=== PATIENT | female | born 1980 | race African-American/Black ===

== ENCOUNTER 2018-07-03 08:37 | Emergency (ER) | payer MEDICAID, OTHER ==
[~2018-07-03] VITALS: Ht 182.9 cm; Wt 87.0 kg
[2018-07-03] MEDS ORDERED: SODIUM CHLORIDE 0.9% 1,000 ML IV ONE (09:35)
[2018-07-03] MEDS ORDERED: ONDANSETRON HCL 4MG/2ML INJ IV STA (09:35)
[2018-07-03] MEDS ORDERED: KETOROLAC 30MG/ML VIAL IV STA (10:38)
[2018-07-03 11:24] LABS: HEMATOCRIT. 35.8 % (36.0-48.0); HEMOGLOBIN. 12.4 g/dL (12.0-16.0); MEAN CORPUSCULAR HEMOGLOBIN 32.7 pg (28.0-32.0); MEAN CORPUSCULAR VOLUME 94.4 fL (81.0-99.0); MEAN PLATELET VOLUME 7.9 fl (7.4-10.4); PLATELET 291 x1000/uL (130-400); RED CELL DISTRIBUTION WIDTH 13.9 % (11.6-14.6)
[2018-07-03] MEDS ORDERED: PROCHLORPERAZINE MALEATE 10MG TABLET PO ONE (11:30)
[2018-07-03] MEDS ORDERED: MORPHINE SULFATE 2 MG/ML CPJ (NOT FOR IM USE) IV ONE (11:30)
[2018-07-03 11:33] LABS: CHLORIDE 98 mEq/L (98-107)
[2018-07-03 11:34] LABS: HCG SCREEN NEGATIVE
[2018-07-03 12:07] LABS: PLATELET ESTIMATE NORMAL
[2018-07-03] MEDS ORDERED: METOCLOPRAMIDE HCL 10MG/2ML VIAL IV ONE (12:15)
[2018-07-03 12:50] LABS: CLARITY URINE CLEAR (CLEAR); COLOR URINE YELLOW (YELLOW); KETONES URINE 4+ (NEGATIVE); LEUKOCYTE ESTERASE URINE NEGATIVE (NEGATIVE); NITRITE URINE NEGATIVE (NEGATIVE); OCCULT BLOOD URINE NEGATIVE (NEGATIVE); PH URINE 8.5 (4.5-8.0); PROTEIN URINE 1+ (NEGATIVE); SPECIFIC GRAVITY URINE 1.024 (1.005-1.030)
[2018-07-03] MEDS ORDERED: MORPHINE SULFATE 4 MG/ML CPJ (NOT FOR IM USE) IV ONE (13:00)
[2018-07-03 13:22] LABS: METHADONE URINE SCREEN NEGATIVE (NEGATIVE); OPIATES URINE SCREEN NEGATIVE (NEGATIVE)
[2018-07-03 13:23] LABS: *AMPHETAMINES SCREEN URINE NEGATIVE (NEGATIVE); *BARBITURATES SCREEN URINE NEGATIVE (NEGATIVE); *BENZODIAZEPINES SCREEN URINE NEGATIVE (NEGATIVE); *COCAINE SCREEN URINE NEGATIVE (NEGATIVE); CANNABINOID URINE SCREEN NEGATIVE (NEGATIVE); PHENCYCLIDINE URINE SCREEN NEGATIVE (NEGATIVE)
[2018-07-03 14:32] VITALS: BP 176/111
== END 2018-07-03 14:34 | disposition home or self-care (01) ==
LOC: ER 09:05
DX: K29.70 Gastritis, unspecified, without bleeding (principal); K76.0 Fatty (change of) liver, not elsewhere classified; E11.9 Type 2 diabetes mellitus without complications; R03.0 Elevated blood-pressure reading, without diagnosis of hypertension
CPT/HCPCS: 36415; 76700; 80053; 80305; 81003; 81025; 83690; 84703; 85025; 96361; 96374; 96375; 96376; 99285; J1885; J2270; J2405; J2765; J7030; Q0164; A4315

== ENCOUNTER 2019-02-27 08:37 | Emergency (ER) | payer MEDICAID, OTHER ==
[~2019-02-27] VITALS: Ht 185.4 cm; Wt 82.0 kg
[2019-02-27] MEDS ORDERED: ONDANSETRON HCL 4MG/2ML INJ IV STA (08:50)
[2019-02-27] MEDS ORDERED: SODIUM CHLORIDE 0.9% 1,000 ML IV ONE (08:50)
[2019-02-27] MEDS ORDERED: MORPHINE SULFATE 4 MG/ML CPJ (NOT FOR IM USE) IV STA (08:50)
[2019-02-27] MEDS ORDERED: FAMOTIDINE 20MG/2ML VIAL IV STA (08:50)
[2019-02-27 09:45] LABS: HEMATOCRIT. 36.3 % (36.0-48.0); HEMOGLOBIN. 12.3 g/dL (12.0-16.0); MEAN CORPUSCULAR HEMOGLOBIN 31.5 pg (28.0-32.0); MEAN CORPUSCULAR VOLUME 93.2 fL (81.0-99.0); MEAN PLATELET VOLUME 7.8 fl (7.4-10.4); PLATELET 301 x1000/uL (130-400); RED CELL DISTRIBUTION WIDTH 14.2 % (11.6-14.6)
[2019-02-27 09:50] LABS: CHLORIDE 98 mEq/L (98-107)
[2019-02-27 09:52] LABS: PROTHROMBIN TIME 10.1 sec (9.6-11.0)
[2019-02-27 09:55] LABS: ETHANOL BLOOD < 10 mg/dL
[2019-02-27 09:57] LABS: HCG SCREEN NEGATIVE
[2019-02-27 10:04] LABS: CLARITY URINE CLOUDY (CLEAR); COLOR URINE YELLOW (YELLOW); KETONES URINE 4+ (NEGATIVE); LEUKOCYTE ESTERASE URINE NEGATIVE (NEGATIVE); NITRITE URINE NEGATIVE (NEGATIVE); OCCULT BLOOD URINE NEGATIVE (NEGATIVE); PROTEIN URINE 1+ (NEGATIVE); SPECIFIC GRAVITY URINE 1.039 (1.005-1.030)
[2019-02-27 10:08] LABS: PLATELET ESTIMATE NORMAL
[2019-02-27 10:26] LABS: *AMPHETAMINES SCREEN URINE NEGATIVE (NEGATIVE); *BARBITURATES SCREEN URINE NEGATIVE (NEGATIVE); *BENZODIAZEPINES SCREEN URINE NEGATIVE (NEGATIVE); *COCAINE SCREEN URINE NEGATIVE (NEGATIVE); CANNABINOID URINE SCREEN NEGATIVE (NEGATIVE); METHADONE URINE SCREEN NEGATIVE (NEGATIVE); OPIATES URINE SCREEN NEGATIVE (NEGATIVE); PHENCYCLIDINE URINE SCREEN NEGATIVE (NEGATIVE)
[2019-02-27 11:44] VITALS: BP 111/74
== END 2019-02-27 11:47 | disposition home or self-care (01) ==
LOC: ER 08:37
DX: E11.65 Type 2 diabetes mellitus with hyperglycemia (principal); B37.49 Other urogenital candidiasis; E11.43 Type 2 diabetes mellitus with diabetic autonomic (poly)neuropathy; K31.84 Gastroparesis; I10 Essential (primary) hypertension; Z98.890 Other specified postprocedural states; Z87.19 Personal history of other diseases of the digestive system
CPT/HCPCS: 36415; 71045; 80053; 80305; 80320; 81003; 81025; 83690; 84484; 84703; 85025; 85610; 93005; 96361; 96374; 96375; 99284; J2270; J2405; J3490; J7030; G0480

== ENCOUNTER 2019-02-28 08:06 | Inpatient (IN) | payer MEDICAID ==
[~2019-02-28] VITALS: Ht 182.9 cm; Wt 81.6 kg
[2019-02-28] MEDS ORDERED: ONDANSETRON HCL 4MG/2ML INJ IV STA (08:15)
[2019-02-28] MEDS ORDERED: SODIUM CHLORIDE 0.9% 1,000 ML IV ONE (08:15)
[2019-02-28] MEDS ORDERED: MORPHINE SULFATE 4 MG/ML CPJ (NOT FOR IM USE) IV STA (08:15)
[2019-02-28 08:38] LABS: BASOPHILS % 0.3 % (0.0-2.0); EOSINOPHILS % 0.3 % (0.0-5.0); HEMATOCRIT. 37.7 % (36.0-48.0); HEMOGLOBIN. 12.7 g/dL (12.0-16.0); LYMPHOCYTES % 15.2 % (20.0-50.0); MEAN CORPUSCULAR HEMOGLOBIN 31.3 pg (28.0-32.0); MEAN CORPUSCULAR VOLUME 92.6 fL (81.0-99.0); MEAN PLATELET VOLUME 7.5 fl (7.4-10.4); MONOCYTES % 5.1 % (2.0-8.0); NEUTROPHILS % 79.1 % (40.0-76.0); PLATELET 354 x1000/uL (130-400); RED BLOOD CELL COUNT 4.07 mill/uL (4.2-5.4); RED CELL DISTRIBUTION WIDTH 14.2 % (11.6-14.6)
[2019-02-28 08:45] LABS: PROTHROMBIN TIME 10.1 sec (9.6-11.0)
[2019-02-28 08:50] LABS: CLARITY URINE TURBID (CLEAR); COLOR URINE YELLOW (YELLOW); KETONES URINE 3+ (NEGATIVE); LEUKOCYTE ESTERASE URINE NEGATIVE (NEGATIVE); NITRITE URINE NEGATIVE (NEGATIVE); OCCULT BLOOD URINE NEGATIVE (NEGATIVE); PROTEIN URINE 1+ (NEGATIVE); SPECIFIC GRAVITY URINE 1.031 (1.005-1.030)
[2019-02-28 08:59] LABS: CHLORIDE 97 mEq/L (98-107)
[2019-02-28 09:15] LABS: HCG SCREEN NEGATIVE
[2019-02-28] MEDS ORDERED: ONDANSETRON HCL 4MG/2ML INJ IV PRN (11:45)
[2019-02-28] MEDS ORDERED: IPRATROPIUM/ALBUTEROL 0.5-3(2.5)MG/3ML NEB INH PRN (11:45)
[2019-02-28] MEDS ORDERED: DIPHENHYDRAMINE 50MG/ML VIAL IV PRN (11:45)
[2019-02-28] MEDS ORDERED: HYDROCODONE/ACETAMINOPHEN 5/325MG TABLET PO PRN (11:45)
[2019-02-28] MEDS ORDERED: GUAIFENESIN 200MG/10ML SUGAR FREE UDC PO PRN (11:45)
[2019-02-28] MEDS ORDERED: MAGNESIUM/ALUMINUM HYDROXIDE/SIMETHICONE 30ML UDC PO PRN (11:45)
[2019-02-28] MEDS ORDERED: DOCUSATE SODIUM 100MG CAPSULE PO PRN (11:45)
[2019-02-28 11:57] LABS: PHOSPHORUS 2.9 mg/dL (2.5-4.9)
[2019-02-28 12:00] VITALS: BP_SYST 175; BP_SYST 195; BP_DIAS 110; BP_DIAS 122
[2019-02-28] MEDS ORDERED: HYDRALAZINE 20MG/ML VIAL IV PRN (12:45)
[2019-02-28] MEDS: MORPHINE SULFATE 2 MG/ML CPJ (NOT FOR IM USE) IV PRN (12:56)
[2019-02-28] MEDS ORDERED: HYDRALAZINE 10 MG in DEXTROSE 5% WATER 50 ML IV PRN (13:00)
[2019-02-28] MEDS: CLONIDINE 0.1MG TABLET PO PRN (15:03)
[2019-02-28 16:00] VITALS: BP 187/111
[2019-02-28 16:53] LABS: CREATINE KINASE 99 IU/L (26-192); CREATINE KINASE MB FRACTION < 1.0 ng/mL (0.5-3.6)
[2019-02-28] MEDS: PANTOPRAZOLE SODIUM 40 MG/VIAL IV SCH (19:58)
[2019-02-28 20:00] VITALS: BP 110/70
[2019-02-28] MEDS: SODIUM CHLORIDE 0.9% 1,000 ML IV SCH (21:19)
[2019-03-01] VITALS: BP 108/58
[2019-03-01 01:23] LABS: CREATINE KINASE 71 IU/L (26-192)
[2019-03-01 01:24] LABS: CREATINE KINASE MB FRACTION < 1.0 ng/mL (0.5-3.6)
[2019-03-01 04:00] VITALS: BP 96/60
[2019-03-01 06:41] LABS: BASOPHILS % 0.5 % (0.0-2.0); EOSINOPHILS % 1.2 % (0.0-5.0); HEMATOCRIT. 32.6 % (36.0-48.0); HEMOGLOBIN. 11.2 g/dL (12.0-16.0); LYMPHOCYTES % 44.6 % (20.0-50.0); MEAN CORPUSCULAR HEMOGLOBIN 31.7 pg (28.0-32.0); MEAN CORPUSCULAR VOLUME 92.6 fL (81.0-99.0); MEAN PLATELET VOLUME 7.9 fl (7.4-10.4); MONOCYTES % 8.7 % (2.0-8.0); PLATELET 290 x1000/uL (130-400); RED BLOOD CELL COUNT 3.52 mill/uL (4.2-5.4); RED CELL DISTRIBUTION WIDTH 14.5 % (11.6-14.6)
[2019-03-01 06:56] LABS: CHLORIDE 101 mEq/L (98-107)
[2019-03-01 07:08] LABS: HDL CHOLESTEROL 71 mg/dL (40-59); LDL CHOLESTEROL 190 mg/dL (5-100)
[2019-03-01 08:00] VITALS: BP 109/69
[2019-03-01] MEDS: FLUCONAZOLE 100MG TABLET PO SCH (09:00)
[2019-03-01] MEDS: PANTOPRAZOLE SODIUM 40 MG/VIAL IV SCH ×2 (09:53→16:33)
[2019-03-01] MEDS: KCL 20MEQ/100ML PREMIX 100 ML IV SCH ×2 (10:00→11:01)
[2019-03-01] MEDS: SODIUM CHLORIDE 0.9% 1,000 ML IV SCH (11:01)
[2019-03-01] MEDS: ENOXAPARIN 40MG/0.4ML SYR SUBCUT SCH (11:33)
[2019-03-01 12:00] VITALS: BP 101/69
[2019-03-01 16:00] VITALS: BP 124/79
[2019-03-01] MEDS ORDERED: POTASSIUM CHLORIDE 20MEQ/PACKET PO NR (18:36)
[2019-03-01 20:00] VITALS: BP 122/82
[2019-03-01] MEDS: ACETAMINOPHEN 325MG TABLET PO PRN (21:15)
[2019-03-02] VITALS: BP 116/71
[2019-03-02] MEDS: SODIUM CHLORIDE 0.9% 1,000 ML IV SCH ×2 (03:28→17:29)
[2019-03-02 04:00] VITALS: BP 157/99
[2019-03-02] MEDS: MORPHINE SULFATE 2 MG/ML CPJ (NOT FOR IM USE) IV PRN (06:59)
[2019-03-02 07:52] VITALS: BP 157/97
[2019-03-02] MEDS: PANTOPRAZOLE SODIUM 40 MG/VIAL IV SCH ×2 (08:43→17:29)
[2019-03-02] MEDS: FLUCONAZOLE 100MG TABLET PO SCH (09:00)
[2019-03-02] MEDS ORDERED: MORPHINE SULFATE 2 MG/ML CPJ (NOT FOR IM USE) IV ONE (09:30)
[2019-03-02] MEDS: CLONIDINE 0.1MG TABLET PO PRN (09:32)
[2019-03-02] MEDS: METOCLOPRAMIDE HCL 10MG/2ML VIAL IV SCH ×4 (09:56→23:29)
[2019-03-02] MEDS ORDERED: DEXTROSE 50% WATER 50ML SYRINGE IV PRN ×2 (10:15)
[2019-03-02] MEDS: BLOOD SUGAR DIAGNOSTIC STRIP TEST SCH ×3 (11:36→20:48)
[2019-03-02] MEDS ORDERED: SIMETHICONE 40 MG/0.6 ML 30ML ONE (11:49)
[2019-03-02 12:00] VITALS: BP 107/52
[2019-03-02] MEDS ORDERED: MIDAZOLAM HCL 5 MG/5 ML VIAL ONE (12:11)
[2019-03-02] MEDS ORDERED: FENTANYL CITRATE/PF 50MCG/ML 2ML VIAL ONE (12:11)
[2019-03-02] MEDS: INSULIN LISPRO 100 UNITS/ML SUBCUT SCH ×3 (12:14→20:43)
[2019-03-02] MEDS ORDERED: MIDAZOLAM HCL 5 MG/5 ML VIAL IV ONE (12:14)
[2019-03-02] MEDS ORDERED: FENTANYL CITRATE/PF 50MCG/ML 2ML VIAL IV ONE (12:15)
[2019-03-02] MEDS: ENOXAPARIN 40MG/0.4ML SYR SUBCUT SCH (14:13)
[2019-03-02] MEDS ORDERED: BACTERIOSTATIC SODIUM CHLORIDE 0.9% 30ML VIAL IJ ONE (15:17)
[2019-03-02 15:26] LABS: BASOPHILS % 0.5 % (0.0-2.0); EOSINOPHILS % 0.7 % (0.0-5.0); HEMATOCRIT. 33.3 % (36.0-48.0); HEMOGLOBIN. 11.4 g/dL (12.0-16.0); LYMPHOCYTES % 33.1 % (20.0-50.0); MEAN CORPUSCULAR HEMOGLOBIN 31.6 pg (28.0-32.0); MEAN CORPUSCULAR VOLUME 91.9 fL (81.0-99.0); MEAN PLATELET VOLUME 7.6 fl (7.4-10.4); MONOCYTES % 7.6 % (2.0-8.0); NEUTROPHILS % 58.1 % (40.0-76.0); PLATELET 289 x1000/uL (130-400); RED BLOOD CELL COUNT 3.62 mill/uL (4.2-5.4); RED CELL DISTRIBUTION WIDTH 14.1 % (11.6-14.6)
[2019-03-02 15:27] LABS: CHLORIDE 107 mEq/L (98-107)
[2019-03-02 20:00] VITALS: BP 107/66
[2019-03-03] VITALS (7 sets, daily range): BP systolic 126–147; BP diastolic 80–91
[2019-03-03] MEDS: SODIUM CHLORIDE 0.9% 1,000 ML IV SCH (06:15)
[2019-03-03] MEDS: METOCLOPRAMIDE HCL 10MG/2ML VIAL IV SCH ×2 (06:16→12:00)
[2019-03-03] MEDS: BLOOD SUGAR DIAGNOSTIC STRIP TEST SCH ×3 (06:17→17:07)
[2019-03-03] MEDS: INSULIN LISPRO 100 UNITS/ML SUBCUT SCH ×3 (06:19→17:14)
[2019-03-03 07:26] LABS: BASOPHILS % 0.4 % (0.0-2.0); EOSINOPHILS % 1.3 % (0.0-5.0); HEMATOCRIT. 32.6 % (36.0-48.0); HEMOGLOBIN. 11.1 g/dL (12.0-16.0); LYMPHOCYTES % 36.2 % (20.0-50.0); MEAN CORPUSCULAR HEMOGLOBIN 31.1 pg (28.0-32.0); MEAN CORPUSCULAR VOLUME 91.8 fL (81.0-99.0); MEAN PLATELET VOLUME 7.8 fl (7.4-10.4); MONOCYTES % 9.3 % (2.0-8.0); NEUTROPHILS % 52.8 % (40.0-76.0); PLATELET 288 x1000/uL (130-400); RED BLOOD CELL COUNT 3.55 mill/uL (4.2-5.4); RED CELL DISTRIBUTION WIDTH 13.8 % (11.6-14.6)
[2019-03-03 07:39] LABS: CHLORIDE 107 mEq/L (98-107)
[2019-03-03] MEDS: FLUCONAZOLE 100MG TABLET PO SCH (08:50)
[2019-03-03] MEDS: PANTOPRAZOLE SODIUM 40 MG/VIAL IV SCH ×2 (08:50→17:00)
[2019-03-03] MEDS: ENOXAPARIN 40MG/0.4ML SYR SUBCUT SCH (12:38)
[2019-03-03] MEDS ORDERED: PANT40TA4 MT (13:27)
[2019-03-03] MEDS: ACETAMINOPHEN 325MG TABLET PO PRN (16:59)
[2019-03-05 08:16] LABS: ALBUMIN URINE 52.7 % (.); ALPHA-1-GLOBULIN URINE 5.2 % (.); ALPHA-2-GLOBULIN URINE 7.6 % (.); BETA GLOBULIN URINE 16.5 % (.); GAMMA GLOBULIN URINE 17.9 % (.); TOTAL PROTEIN RANDOM URINE 20.8 mg/dL (Not Estab.)
[2019-03-05 09:08] LABS: ALBUMIN 3.4 g/dL (2.9-4.4); ALPHA-1-GLOBULIN 0.2 g/dL (0.0-0.4); ALPHA-2-GLOBULIN 0.6 g/dL (0.4-1.0); BETA GLOBULIN 1.3 g/dL (0.7-1.3); GAMMA GLOBULINS 1.3 g/dL (0.4-1.8); GLOBULIN TOTAL 3.4 g/dL (2.2-3.9); M-SPIKE Not Observed g/dL (Not Observed); TOTAL PROTEIN SERUM 6.8 g/dL (6.0-8.5)
== END 2019-03-03 18:50 | disposition home or self-care (01) | DRG 241 ==
LOC: ER 08:06 → 6EST 10:06 → ENRESERV 11:24 → 5WST 14:15
PROVIDERS: ADMIT Internal Medicine; ATTEND Internal Medicine
PROC: 0DB68ZX Excision of Stomach, Via Natural or Artificial Opening Endoscopic, Diagnostic (ICD-10-PCS; principal; 2019-03-02)
DX: K29.70 Gastritis, unspecified, without bleeding (principal); E11.9 Type 2 diabetes mellitus without complications; E78.00 Pure hypercholesterolemia, unspecified; F32.9 Major depressive disorder, single episode, unspecified; I10 Essential (primary) hypertension; K44.9 Diaphragmatic hernia without obstruction or gangrene; R82.79 Other abnormal findings on microbiological examination of urine; Z98.891 History of uterine scar from previous surgery; Z79.84 Long term (current) use of oral hypoglycemic drugs; Z79.899 Other long term (current) drug therapy
CPT/HCPCS: 36415; 74176; 80048; 80061; 81025; 82550; 82553; 82962; 83735; 84100; 84155; 84156; 84165; 84166; 84443; 84703; 88305; 88312; 88313; 93970; 96361; 96374; 96375; 99285; C9113; J1650; J1815; J2250; J2270; J2405; J2765; J3010; J3480; J3490; J7030

== ENCOUNTER 2019-06-02 08:28 | Emergency (ER) | payer MEDICAID ==
[~2019-06-02] VITALS: Ht 185.4 cm; Wt 90.0 kg
[~2019-06-02 08:28] MED LIST: PANT40TA4 MT
[2019-06-02] MEDS ORDERED: ONDANSETRON 4MG ODT PO STA (10:44)
[2019-06-02 11:35] LABS: CLARITY URINE CLOUDY (CLEAR); COLOR URINE YELLOW (YELLOW); KETONES URINE TRACE (NEGATIVE); LEUKOCYTE ESTERASE URINE NEGATIVE (NEGATIVE); NITRITE URINE NEGATIVE (NEGATIVE); OCCULT BLOOD URINE NEGATIVE (NEGATIVE); PROTEIN URINE TRACE (NEGATIVE); SPECIFIC GRAVITY URINE 1.042 (1.005-1.030)
[2019-06-02 13:26] LABS: BASOPHILS % 0.5 % (0.0-2.0); EOSINOPHILS % 0.6 % (0.0-5.0); HEMOGLOBIN. 13.3 g/dL (12.0-16.0); LYMPHOCYTES % 23.4 % (20.0-50.0); MEAN CORPUSCULAR HEMOGLOBIN 31.4 pg (28.0-32.0); MEAN CORPUSCULAR VOLUME 92.3 fL (81.0-99.0); MEAN PLATELET VOLUME 8.2 fl (7.4-10.4); MONOCYTES % 3.9 % (2.0-8.0); NEUTROPHILS % 71.6 % (40.0-76.0); PLATELET 338 x1000/uL (130-400); RED BLOOD CELL COUNT 4.23 mill/uL (4.2-5.4); RED CELL DISTRIBUTION WIDTH 13.5 % (11.6-14.6)
[2019-06-02 13:29] LABS: CHLORIDE 100 mEq/L (98-107)
[2019-06-02 14:20] VITALS: BP 118/78
== END 2019-06-02 14:21 | disposition home or self-care (01) ==
LOC: ER 08:28
DX: R10.13 Epigastric pain (principal); B37.49 Other urogenital candidiasis; E11.9 Type 2 diabetes mellitus without complications; F32.9 Major depressive disorder, single episode, unspecified
CPT/HCPCS: 36415; 76705; 80053; 81003; 81025; 85025; 99284; Q0162; Z7610

== ENCOUNTER 2019-06-05 16:55 | Emergency (ER) | payer MEDICAID ==
[~2019-06-05] VITALS: Ht 180.3 cm; Wt 86.0 kg
[2019-06-05 17:48] LABS: BASOPHILS % 0.6 % (0.0-2.0); EOSINOPHILS % 0.3 % (0.0-5.0); HEMOGLOBIN. 13.2 g/dL (12.0-16.0); LYMPHOCYTES % 16.5 % (20.0-50.0); MEAN CORPUSCULAR HEMOGLOBIN 31.2 pg (28.0-32.0); MEAN CORPUSCULAR VOLUME 92.3 fL (81.0-99.0); MONOCYTES % 4.4 % (2.0-8.0); NEUTROPHILS % 78.2 % (40.0-76.0); PLATELET 307 x1000/uL (130-400); RED BLOOD CELL COUNT 4.23 mill/uL (4.2-5.4); RED CELL DISTRIBUTION WIDTH 13.1 % (11.6-14.6)
[2019-06-05 17:53] LABS: CHLORIDE 98 mEq/L (98-107)
[2019-06-05 17:57] LABS: ETHANOL BLOOD < 10 mg/dL
[2019-06-05] MEDS ORDERED: KETOROLAC 30MG/ML VIAL IV STA (19:01)
[2019-06-05] MEDS ORDERED: SODIUM CHLORIDE 0.9% 1,000 ML IV ONE (19:01)
[2019-06-05] MEDS ORDERED: ONDANSETRON HCL 4MG/2ML INJ IV STA (19:01)
[2019-06-05 19:04] LABS: CLARITY URINE CLOUDY (CLEAR); COLOR URINE YELLOW (YELLOW); KETONES URINE 1+ (NEGATIVE); LEUKOCYTE ESTERASE URINE NEGATIVE (NEGATIVE); NITRITE URINE NEGATIVE (NEGATIVE); OCCULT BLOOD URINE NEGATIVE (NEGATIVE); PROTEIN URINE 1+ (NEGATIVE); SPECIFIC GRAVITY URINE 1.032 (1.005-1.030)
[2019-06-05 19:28] LABS: *BARBITURATES SCREEN URINE NEGATIVE (NEGATIVE); *BENZODIAZEPINES SCREEN URINE NEGATIVE (NEGATIVE)
[2019-06-05 19:29] LABS: *AMPHETAMINES SCREEN URINE NEGATIVE (NEGATIVE); *COCAINE SCREEN URINE NEGATIVE (NEGATIVE); METHADONE URINE SCREEN NEGATIVE (NEGATIVE); OPIATES URINE SCREEN NEGATIVE (NEGATIVE); PHENCYCLIDINE URINE SCREEN NEGATIVE (NEGATIVE)
[2019-06-05 19:30] LABS: CANNABINOID URINE SCREEN NEGATIVE (NEGATIVE)
[2019-06-05] MEDS ORDERED: FLUCONAZOLE 100MG TABLET PO ONE (19:45)
[2019-06-05] MEDS ORDERED: HALOPERIDOL LACTATE 5MG/ML VIAL IM ONE (20:00)
[2019-06-06] MEDS ORDERED: OLANZAPINE 10 MG/VIAL IM NR (03:00)
[2019-06-06 09:00] VITALS: BP 118/80
== END 2019-06-06 11:01 | disposition home or self-care (01) ==
LOC: ER 16:55
DX: R10.13 Epigastric pain (principal); F32.9 Major depressive disorder, single episode, unspecified; R45.851 Suicidal ideations; E11.9 Type 2 diabetes mellitus without complications
CPT/HCPCS: 36415; 74018; 80053; 80305; 80320; 81003; 81025; 83690; 85025; 96361; 96372; 96374; 96375; 99284; J1630; J1885; J2405; J3490; J7030; G0480

== ENCOUNTER 2019-07-02 06:52 | Inpatient (IN) | payer MEDICAID ==
[~2019-07-02] VITALS: Ht 185.4 cm; Wt 81.6 kg
[2019-07-02] MEDS ORDERED: FAMOTIDINE 20MG/2ML VIAL IV STA (07:20)
[2019-07-02] MEDS ORDERED: MORPHINE SULFATE 4 MG/ML CPJ (NOT FOR IM USE) IV STA (07:20)
[2019-07-02] MEDS ORDERED: ONDANSETRON HCL 4MG/2ML INJ IV STA (07:20)
[2019-07-02 07:41] LABS: BASOPHILS % 0.5 % (0.0-2.0); EOSINOPHILS % 0.5 % (0.0-5.0); HEMATOCRIT. 35.8 % (36.0-48.0); HEMOGLOBIN. 12.6 g/dL (12.0-16.0); LYMPHOCYTES % 19.6 % (20.0-50.0); MEAN CORPUSCULAR HEMOGLOBIN 32.8 pg (28.0-32.0); MEAN CORPUSCULAR VOLUME 93.1 fL (81.0-99.0); MEAN PLATELET VOLUME 7.5 fl (7.4-10.4); MONOCYTES % 6.1 % (2.0-8.0); NEUTROPHILS % 73.3 % (40.0-76.0); PLATELET 276 x1000/uL (130-400); RED BLOOD CELL COUNT 3.84 mill/uL (4.2-5.4); RED CELL DISTRIBUTION WIDTH 14.2 % (11.6-14.6)
[2019-07-02 07:50] LABS: CHLORIDE 101 mEq/L (98-107)
[2019-07-02] MEDS ORDERED: MORPHINE SULFATE 4 MG/ML CPJ (NOT FOR IM USE) IV ONE (08:45)
[2019-07-02] MEDS ORDERED: SODIUM CHLORIDE 0.9% 1,000 ML IV ONE (08:55)
[2019-07-02 09:13] LABS: HCG SCREEN NEGATIVE
[2019-07-02] MEDS ORDERED: HYDRALAZINE 20MG/ML VIAL IV ONE (10:30)
[2019-07-02 10:39] LABS: CLARITY URINE CLEAR (CLEAR); COLOR URINE YELLOW (YELLOW); KETONES URINE 1+ (NEGATIVE); LEUKOCYTE ESTERASE URINE NEGATIVE (NEGATIVE); NITRITE URINE NEGATIVE (NEGATIVE); OCCULT BLOOD URINE NEGATIVE (NEGATIVE); PROTEIN URINE NEGATIVE (NEGATIVE); SPECIFIC GRAVITY URINE 1.023 (1.005-1.030)
[2019-07-02] MEDS ORDERED: ACETAMINOPHEN 325MG TABLET PO PRN (11:45)
[2019-07-02] MEDS ORDERED: MORPHINE SULFATE 2 MG/ML CPJ (NOT FOR IM USE) IV PRN (11:45)
[2019-07-02] MEDS ORDERED: ONDANSETRON HCL 4MG/2ML INJ IV PRN (11:45)
[2019-07-02] MEDS ORDERED: HYDRALAZINE 20MG/ML VIAL IV PRN (11:45)
[2019-07-02] MEDS: LOSARTAN POTASSIUM 100 MG TABLET PO SCH (11:45)
[2019-07-02] MEDS ORDERED: DEXTROSE 50% WATER 50ML SYRINGE IV PRN (15:00)
[2019-07-02] MEDS: BLOOD SUGAR DIAGNOSTIC STRIP TEST SCH ×2 (17:12→22:49)
[2019-07-02] MEDS: METOCLOPRAMIDE HCL 10MG/2ML VIAL IV SCH ×2 (18:00→23:35)
[2019-07-02] MEDS: INSULIN LISPRO 100 UNITS/ML SUBCUT SCH ×2 (18:20→22:49)
[2019-07-02] MEDS: MORPHINE SULFATE 4 MG/ML CPJ (NOT FOR IM USE) IV PRN (19:58)
[2019-07-02 23:00] VITALS: BP 151/93
[2019-07-02] MEDS: ATORVASTATIN CALCIUM 20MG TABLET PO SCH (23:34)
[2019-07-02] MEDS: AMLODIPINE 5MG TABLET PO SCH (23:34)
[2019-07-02 23:58] VITALS: BP 151/93
[2019-07-03] VITALS: BP 149/90
[2019-07-03] MEDS: MORPHINE SULFATE 4 MG/ML CPJ (NOT FOR IM USE) IV PRN ×2 (00:13→04:54)
[2019-07-03 04:00] VITALS: BP 113/70
[2019-07-03] MEDS: METOCLOPRAMIDE HCL 10MG/2ML VIAL IV SCH ×3 (06:15→17:44)
[2019-07-03] MEDS: BLOOD SUGAR DIAGNOSTIC STRIP TEST SCH ×4 (06:18→21:58)
[2019-07-03 06:47] LABS: BASOPHILS % 0.4 % (0.0-2.0); EOSINOPHILS % 1.1 % (0.0-5.0); HEMATOCRIT. 33.8 % (36.0-48.0); HEMOGLOBIN. 11.8 g/dL (12.0-16.0); LYMPHOCYTES % 31.7 % (20.0-50.0); MEAN CORPUSCULAR VOLUME 91.4 fL (81.0-99.0); MEAN PLATELET VOLUME 7.7 fl (7.4-10.4); MONOCYTES % 6.9 % (2.0-8.0); NEUTROPHILS % 59.9 % (40.0-76.0); PLATELET 284 x1000/uL (130-400); RED CELL DISTRIBUTION WIDTH 14.4 % (11.6-14.6)
[2019-07-03] MEDS ORDERED: QUET25TA PO (07:40)
[2019-07-03] MEDS ORDERED: SERT100T PO (07:40)
[2019-07-03 07:51] LABS: CHLORIDE 102 mEq/L (98-107)
[2019-07-03 08:00] VITALS: BP 104/71
[2019-07-03] MEDS ORDERED: PNEUMOCOCCAL 23-VAL P-SAC VAC 0.5 ML IM ONE (08:00)
[2019-07-03] MEDS ORDERED: INFLUENZA VIRUS VACCINE(AFLURIA) 0.5ML SYR IM ONE (08:00)
[2019-07-03] MEDS: AMLODIPINE 5MG TABLET PO SCH ×2 (09:00→21:50)
[2019-07-03] MEDS: LOSARTAN POTASSIUM 100 MG TABLET PO SCH (09:00)
[2019-07-03] MEDS: PANTOPRAZOLE SODIUM 40 MG/VIAL IV SCH (09:02)
[2019-07-03] MEDS: INSULIN LISPRO 100 UNITS/ML SUBCUT SCH ×4 (09:03→21:00)
[2019-07-03 12:00] VITALS: BP 122/82
[2019-07-03 16:09] VITALS: BP 113/69
[2019-07-03 20:00] VITALS: BP 111/72
[2019-07-03] MEDS: ATORVASTATIN CALCIUM 20MG TABLET PO SCH (21:50)
[2019-07-04] VITALS: BP 94/58
[2019-07-04] MEDS: METOCLOPRAMIDE HCL 10MG/2ML VIAL IV SCH ×2 (00:33→08:48)
[2019-07-04 04:00] VITALS: BP 111/77
[2019-07-04 07:22] LABS: BASOPHILS % 0.5 % (0.0-2.0); EOSINOPHILS % 1.3 % (0.0-5.0); HEMOGLOBIN. 11.9 g/dL (12.0-16.0); LYMPHOCYTES % 37.6 % (20.0-50.0); MEAN CORPUSCULAR HEMOGLOBIN 32.2 pg (28.0-32.0); MEAN CORPUSCULAR VOLUME 92.4 fL (81.0-99.0); MEAN PLATELET VOLUME 8.2 fl (7.4-10.4); NEUTROPHILS % 52.6 % (40.0-76.0); PLATELET 269 x1000/uL (130-400); RED BLOOD CELL COUNT 3.68 mill/uL (4.2-5.4); RED CELL DISTRIBUTION WIDTH 14.3 % (11.6-14.6)
[2019-07-04 07:27] LABS: CHLORIDE 102 mEq/L (98-107)
[2019-07-04 08:00] VITALS: BP 109/67
[2019-07-04] MEDS: BLOOD SUGAR DIAGNOSTIC STRIP TEST SCH (08:34)
[2019-07-04] MEDS: LOSARTAN POTASSIUM 100 MG TABLET PO SCH (08:48)
[2019-07-04] MEDS: AMLODIPINE 5MG TABLET PO SCH (08:48)
[2019-07-04] MEDS: INSULIN LISPRO 100 UNITS/ML SUBCUT SCH (08:49)
[2019-07-04] MEDS: PANTOPRAZOLE SODIUM 40 MG/VIAL IV SCH (09:11)
[2019-07-04] MEDS ORDERED: POTASSIUM CHLORIDE 20MEQ/PACKET PO SCH (11:15)
== END 2019-07-04 11:15 | disposition left against medical advice (07) | DRG 241 ==
LOC: ER 06:52 → 7WST 10:48 → ENRESERV 19:05 → EDBEDREQSVC 19:56 → ENRESERV 19:57 → EDBEDREQSVC 20:04 → EDBEDREQTM 20:06 → EDBEDREQSVC 20:06
PROVIDERS: ADMIT Internal Medicine; ATTEND Internal Medicine
DX: K29.70 Gastritis, unspecified, without bleeding (principal); K31.84 Gastroparesis; E11.43 Type 2 diabetes mellitus with diabetic autonomic (poly)neuropathy; I16.0 Hypertensive urgency; E78.5 Hyperlipidemia, unspecified; E87.6 Hypokalemia; K52.9 Noninfective gastroenteritis and colitis, unspecified; I10 Essential (primary) hypertension; Z98.891 History of uterine scar from previous surgery; Z79.84 Long term (current) use of oral hypoglycemic drugs
CPT/HCPCS: 36415; 74176; 80048; 81003; 82962; 83036; 84703; 90686; 90732; 93970; 96374; 96375; 96376; 99291; C9113; J0360; J1815; J2270; J2405; J2765; J3490; J7030

== ENCOUNTER 2019-07-06 06:05 | Emergency (ER) | payer MEDICAID ==
[~2019-07-06] VITALS: Ht 172.7 cm; Wt 79.0 kg
[~2019-07-06 06:05] MED LIST changes: +QUET25TA PO; +SERT100T PO
[2019-07-06] MEDS ORDERED: SODIUM CHLORIDE 0.9% 1,000 ML IV ONE (06:22)
[2019-07-06] MEDS ORDERED: MAGNESIUM/ALUMINUM HYDROXIDE/SIMETHICONE 30ML UDC PO STA (06:22)
[2019-07-06] MEDS ORDERED: MORPHINE SULFATE 4 MG/ML CPJ (NOT FOR IM USE) IV STA (06:22)
[2019-07-06] MEDS ORDERED: PANTOPRAZOLE SODIUM 40 MG/VIAL IV STA (06:22)
[2019-07-06] MEDS ORDERED: VISCOUS LIDOCAINE 2% 15 ML UDC PO STA (06:22)
[2019-07-06] MEDS ORDERED: METOCLOPRAMIDE HCL 10MG/2ML VIAL IV STA (06:22)
[2019-07-06 06:47] LABS: CLARITY URINE CLOUDY (CLEAR); COLOR URINE YELLOW (YELLOW); KETONES URINE 3+ (NEGATIVE); LEUKOCYTE ESTERASE URINE 1+ (NEGATIVE); NITRITE URINE NEGATIVE (NEGATIVE); OCCULT BLOOD URINE NEGATIVE (NEGATIVE); PROTEIN URINE 1+ (NEGATIVE); SPECIFIC GRAVITY URINE 1.034 (1.005-1.030)
[2019-07-06 06:49] LABS: BASOPHILS % 0.8 % (0.0-2.0); HEMATOCRIT. 37.6 % (36.0-48.0); HEMOGLOBIN. 12.9 g/dL (12.0-16.0); MEAN CORPUSCULAR HEMOGLOBIN 31.6 pg (28.0-32.0); MEAN PLATELET VOLUME 7.5 fl (7.4-10.4); MONOCYTES % 6.9 % (2.0-8.0); NEUTROPHILS % 73.3 % (40.0-76.0); PLATELET 279 x1000/uL (130-400); RED BLOOD CELL COUNT 4.08 mill/uL (4.2-5.4)
[2019-07-06 06:53] LABS: CHLORIDE 100 mEq/L (98-107)
[2019-07-06 06:55] LABS: PROTHROMBIN TIME 10.6 sec (9.6-11.0)
[2019-07-06 08:35] VITALS: BP 123/78
== END 2019-07-06 08:53 | disposition home or self-care (01) ==
LOC: ER 06:05
DX: K59.00 Constipation, unspecified (principal); E11.43 Type 2 diabetes mellitus with diabetic autonomic (poly)neuropathy; K31.84 Gastroparesis
CPT/HCPCS: 36415; 80053; 81003; 81025; 83605; 83690; 85025; 85610; 96361; 96374; 96375; 96376; 99283; C9113; J2270; J2765; Z7610

== ENCOUNTER 2019-07-14 12:26 | Emergency (ER) | payer MEDICAID ==
[~2019-07-14] VITALS: Ht 185.4 cm; Wt 82.0 kg
[2019-07-14] MEDS ORDERED: SODIUM CHLORIDE 0.9% 1,000 ML IV ONE (14:34)
[2019-07-14] MEDS ORDERED: ONDANSETRON HCL 4MG/2ML INJ IV STA (14:34)
[2019-07-14] MEDS ORDERED: MORPHINE SULFATE 4 MG/ML CPJ (NOT FOR IM USE) IV STA (14:34)
[2019-07-14] MEDS ORDERED: FAMOTIDINE 20MG/2ML VIAL IV ONE (14:45)
[2019-07-14] MEDS ORDERED: MAGNESIUM/ALUMINUM HYDROXIDE/SIMETHICONE 30ML UDC PO ONE (14:45)
[2019-07-14 14:53] LABS: BASOPHILS % 0.7 % (0.0-2.0); EOSINOPHILS % 0.6 % (0.0-5.0); HEMATOCRIT. 37.6 % (36.0-48.0); HEMOGLOBIN. 12.9 g/dL (12.0-16.0); LYMPHOCYTES % 25.5 % (20.0-50.0); MEAN CORPUSCULAR HEMOGLOBIN 31.1 pg (28.0-32.0); MEAN PLATELET VOLUME 7.7 fl (7.4-10.4); MONOCYTES % 7.6 % (2.0-8.0); NEUTROPHILS % 65.6 % (40.0-76.0); PLATELET 314 x1000/uL (130-400); RED BLOOD CELL COUNT 4.13 mill/uL (4.2-5.4); RED CELL DISTRIBUTION WIDTH 13.6 % (11.6-14.6)
[2019-07-14 14:58] LABS: CHLORIDE 98 mEq/L (98-107)
[2019-07-14 14:59] LABS: HCG SCREEN NEGATIVE
[2019-07-14 15:01] LABS: ETHANOL BLOOD < 10 mg/dL
[2019-07-14] MEDS ORDERED: METOCLOPRAMIDE HCL 10MG/2ML VIAL IV ONE (16:45)
[2019-07-14] MEDS ORDERED: POTASSIUM CHLORIDE 20MEQ TABLET SR PO ONE (16:45)
[2019-07-14] MEDS ORDERED: KETOROLAC 30MG/ML VIAL IV ONE (16:45)
[2019-07-14 17:29] VITALS: BP 129/92
== END 2019-07-14 19:00 | disposition home or self-care (01) ==
LOC: ER 12:38
DX: K29.00 Acute gastritis without bleeding (principal); E11.43 Type 2 diabetes mellitus with diabetic autonomic (poly)neuropathy; K31.84 Gastroparesis; E87.6 Hypokalemia; I10 Essential (primary) hypertension; Z98.890 Other specified postprocedural states
CPT/HCPCS: 36415; 74018; 80053; 80320; 83690; 83880; 84484; 84703; 85025; 96361; 96374; 96375; 99284; J1885; J2270; J2405; J2765; J3490; J7030; G0480

== ENCOUNTER 2019-08-07 05:06 | Emergency (ER) | payer MEDICAID ==
[~2019-08-07] VITALS: Ht 182.9 cm; Wt 77.5 kg
[2019-08-07 06:16] LABS: CHLORIDE 102 mEq/L (98-107)
[2019-08-07] MEDS ORDERED: SODIUM CHLORIDE 0.9% 1,000 ML IV ONE (06:17)
[2019-08-07] MEDS ORDERED: MORPHINE SULFATE 4 MG/ML CPJ (NOT FOR IM USE) IV STA (06:17)
[2019-08-07 06:21] LABS: CLARITY URINE TURBID (CLEAR); COLOR URINE DARK YELLOW (YELLOW); KETONES URINE 2+ (NEGATIVE); LEUKOCYTE ESTERASE URINE 2+ (NEGATIVE); NITRITE URINE NEGATIVE (NEGATIVE); OCCULT BLOOD URINE NEGATIVE (NEGATIVE); PH URINE 5.5 (4.5-8.0); PROTEIN URINE 1+ (NEGATIVE); SPECIFIC GRAVITY URINE 1.029 (1.005-1.030)
[2019-08-07 06:21] LABS: PROTHROMBIN TIME 10.7 sec (9.6-11.0)
[2019-08-07 06:26] LABS: BASOPHILS % 0.8 % (0.0-2.0); EOSINOPHILS % 0.8 % (0.0-5.0); HEMATOCRIT. 35.2 % (36.0-48.0); HEMOGLOBIN. 12.4 g/dL (12.0-16.0); LYMPHOCYTES % 31.7 % (20.0-50.0); MEAN CORPUSCULAR HEMOGLOBIN 31.5 pg (28.0-32.0); MEAN CORPUSCULAR VOLUME 89.4 fL (81.0-99.0); MEAN PLATELET VOLUME 7.7 fl (7.4-10.4); MONOCYTES % 9.7 % (2.0-8.0); PLATELET 342 x1000/uL (130-400); RED BLOOD CELL COUNT 3.94 mill/uL (4.2-5.4); RED CELL DISTRIBUTION WIDTH 13.4 % (11.6-14.6)
[2019-08-07] MEDS ORDERED: METOCLOPRAMIDE HCL 10MG/2ML VIAL IV ONE (06:30)
[2019-08-07 06:57] LABS: *AMPHETAMINES SCREEN URINE NEGATIVE (NEGATIVE); *BARBITURATES SCREEN URINE NEGATIVE (NEGATIVE); *BENZODIAZEPINES SCREEN URINE NEGATIVE (NEGATIVE); *COCAINE SCREEN URINE NEGATIVE (NEGATIVE); METHADONE URINE SCREEN NEGATIVE (NEGATIVE)
[2019-08-07 06:58] LABS: PHENCYCLIDINE URINE SCREEN NEGATIVE (NEGATIVE)
[2019-08-07 07:05] LABS: CANNABINOID URINE SCREEN PRESUMTIVE POSITIVE (NEGATIVE); OPIATES URINE SCREEN PRESUMTIVE POSITIVE (NEGATIVE)
[2019-08-07 08:38] VITALS: BP 140/90
== END 2019-08-07 08:50 | disposition home or self-care (01) ==
LOC: ER 05:06
DX: K31.84 Gastroparesis (principal); R11.2 Nausea with vomiting, unspecified; N39.0 Urinary tract infection, site not specified; I10 Essential (primary) hypertension; E11.9 Type 2 diabetes mellitus without complications; F32.9 Major depressive disorder, single episode, unspecified; F12.10 Cannabis abuse, uncomplicated; Z98.890 Other specified postprocedural states; Z79.899 Other long term (current) drug therapy
CPT/HCPCS: 36415; 80053; 80305; 81003; 81025; 82962; 83690; 85025; 85610; 87077; 87086; 87186; 96361; 96374; 96375; 99283; J2270; J2765; J7030; Z7610

== ENCOUNTER 2019-09-04 16:37 | Inpatient (IN) | payer MEDICAID ==
[~2019-09-04] VITALS: Ht 185.4 cm; Wt 77.6 kg
[2019-09-04] MEDS ORDERED: SODIUM CHLORIDE 0.9% 1,000 ML IV ONE (22:06)
[2019-09-04] MEDS ORDERED: ONDANSETRON HCL 4MG/2ML INJ IV STA (22:06)
[2019-09-04] MEDS ORDERED: KETOROLAC 30MG/ML VIAL IV ONE (23:00)
[2019-09-04 23:10] LABS: BASOPHILS % 0.6 % (0.0-2.0); EOSINOPHILS % 0.7 % (0.0-5.0); HEMOGLOBIN. 12.7 g/dL (12.0-16.0); LYMPHOCYTES % 26.9 % (20.0-50.0); MEAN CORPUSCULAR HEMOGLOBIN 31.3 pg (28.0-32.0); MEAN CORPUSCULAR VOLUME 90.9 fL (81.0-99.0); MEAN PLATELET VOLUME 7.5 fl (7.4-10.4); MONOCYTES % 6.5 % (2.0-8.0); NEUTROPHILS % 65.3 % (40.0-76.0); PLATELET 309 x1000/uL (130-400); RED BLOOD CELL COUNT 4.07 mill/uL (4.2-5.4)
[2019-09-04 23:18] LABS: CHLORIDE 101 mEq/L (98-107)
[2019-09-04 23:28] LABS: CLARITY URINE CLOUDY (CLEAR); COLOR URINE DARK YELLOW (YELLOW); KETONES URINE 3+ (NEGATIVE); LEUKOCYTE ESTERASE URINE TRACE (NEGATIVE); NITRITE URINE NEGATIVE (NEGATIVE); OCCULT BLOOD URINE NEGATIVE (NEGATIVE); PH URINE 5.5 (4.5-8.0); PROTEIN URINE 2+ (NEGATIVE); SPECIFIC GRAVITY URINE 1.027 (1.005-1.030)
[2019-09-05] MEDS ORDERED: VISCOUS LIDOCAINE 2% 15 ML UDC PO ONE (00:15)
[2019-09-05] MEDS ORDERED: MAGNESIUM/ALUMINUM HYDROXIDE/SIMETHICONE 30ML UDC PO ONE (00:15)
[2019-09-05] MEDS ORDERED: CLONIDINE 0.2MG TABLET PO SCH (00:45)
[2019-09-05] MEDS ORDERED: SODIUM CHLORIDE 0.9% 1,000 ML IV ONE (00:45)
[2019-09-05] MEDS ORDERED: DEXTROSE 50% WATER 50ML SYRINGE IV PRN (09:30)
[2019-09-05] MEDS ORDERED: POTASSIUM CHLORIDE 20MEQ TABLET SR PO NR (09:30)
[2019-09-05] MEDS ORDERED: LACTULOSE 20G/30ML UDC PO NR (09:30)
[2019-09-05] MEDS ORDERED: ONDANSETRON HCL 4MG/2ML INJ IV PRN (09:30)
[2019-09-05] MEDS ORDERED: ACETAMINOPHEN 325MG TABLET PO PRN (09:30)
[2019-09-05] MEDS: BLOOD SUGAR DIAGNOSTIC STRIP TEST SCH ×3 (11:58→20:54)
[2019-09-05 12:00] VITALS: BP 92/55
[2019-09-05] MEDS: METOCLOPRAMIDE HCL 10MG/2ML VIAL IV SCH ×3 (12:36→23:44)
[2019-09-05] MEDS: INSULIN LISPRO 100 UNITS/ML SUBCUT SCH ×3 (12:37→20:57)
[2019-09-05 13:52] VITALS: BP 92/55
[2019-09-05 16:00] VITALS: BP 99/67
[2019-09-05] MEDS ORDERED: SORBITOL 70% SOLN 30ML PO NR (17:30)
[2019-09-05 20:00] VITALS: BP 96/63
[2019-09-06] VITALS: BP 101/67
[2019-09-06 04:00] VITALS: BP 104/68
[2019-09-06] MEDS: INSULIN LISPRO 100 UNITS/ML SUBCUT SCH ×2 (06:31→12:42)
[2019-09-06] MEDS: METOCLOPRAMIDE HCL 10MG/2ML VIAL IV SCH ×2 (06:31→12:42)
[2019-09-06] MEDS: BLOOD SUGAR DIAGNOSTIC STRIP TEST SCH ×2 (06:31→12:42)
[2019-09-06 08:00] VITALS: BP 120/77
[2019-09-06 12:00] VITALS: BP 124/80
[2019-09-06 13:11] VITALS: BP 124/80
[2019-09-06 13:15] LABS: BASOPHILS % 0.3 % (0.0-2.0); EOSINOPHILS % 1.4 % (0.0-5.0); HEMATOCRIT. 30.6 % (36.0-48.0); HEMOGLOBIN. 10.7 g/dL (12.0-16.0); LYMPHOCYTES % 29.4 % (20.0-50.0); MEAN CORPUSCULAR HEMOGLOBIN 31.8 pg (28.0-32.0); MEAN CORPUSCULAR VOLUME 90.8 fL (81.0-99.0); MEAN PLATELET VOLUME 7.6 fl (7.4-10.4); MONOCYTES % 5.5 % (2.0-8.0); NEUTROPHILS % 63.4 % (40.0-76.0); PLATELET 261 x1000/uL (130-400); RED BLOOD CELL COUNT 3.37 mill/uL (4.2-5.4); RED CELL DISTRIBUTION WIDTH 13.7 % (11.6-14.6)
[2019-09-06 13:18] LABS: CHLORIDE 104 mEq/L (98-107)
== END 2019-09-06 15:00 | disposition home or self-care (01) | DRG 48 ==
LOC: ER 16:37 → 5WST 09-05 01:07 → ENRESERV 09-05 07:51
PROVIDERS: ADMIT Internal Medicine; ATTEND Internal Medicine
DX: E11.43 Type 2 diabetes mellitus with diabetic autonomic (poly)neuropathy (principal); K31.84 Gastroparesis; E87.6 Hypokalemia; I10 Essential (primary) hypertension; I16.0 Hypertensive urgency; K29.70 Gastritis, unspecified, without bleeding; Z98.891 History of uterine scar from previous surgery; F32.9 Major depressive disorder, single episode, unspecified; K44.9 Diaphragmatic hernia without obstruction or gangrene; Z79.899 Other long term (current) drug therapy
CPT/HCPCS: 36415; 74021; 80048; 80053; 81003; 82962; 85025; 96361; 96374; 96375; 99285; J1815; J1885; J2405; J2765; J7030

== ENCOUNTER 2019-10-14 09:26 | Emergency (ER) | payer MEDICAID ==
[~2019-10-14] VITALS: Ht 182.9 cm; Wt 63.0 kg
[2019-10-14] MEDS ORDERED: KETOROLAC 30MG/ML VIAL IV STA (10:44)
[2019-10-14] MEDS ORDERED: SODIUM CHLORIDE 0.9% 1,000 ML IV ONE (10:44)
[2019-10-14] MEDS ORDERED: HALOPERIDOL LACTATE 5MG/ML VIAL IM ONE (10:45)
[2019-10-14 11:15] LABS: COLOR URINE DK YELLOW (YELLOW); KETONES URINE 1+ (NEGATIVE); LEUKOCYTE ESTERASE URINE NEGATIVE (NEGATIVE); NITRITE URINE NEGATIVE (NEGATIVE); OCCULT BLOOD URINE NEGATIVE (NEGATIVE); PROTEIN URINE 2+ (NEGATIVE); SPECIFIC GRAVITY URINE 1.021 (1.005-1.030)
[2019-10-14 11:19] LABS: CLARITY URINE CLOUDY (CLEAR)
[2019-10-14 11:25] LABS: CHLORIDE 100 mEq/L (98-107)
[2019-10-14 11:30] LABS: BASOPHILS % 0.6 % (0.0-2.0); EOSINOPHILS % 1.2 % (0.0-5.0); HEMATOCRIT. 34.5 % (36.0-48.0); HEMOGLOBIN. 12.2 g/dL (12.0-16.0); LYMPHOCYTES % 29.8 % (20.0-50.0); MEAN CORPUSCULAR HEMOGLOBIN 32.1 pg (28.0-32.0); MEAN CORPUSCULAR VOLUME 90.6 fL (81.0-99.0); MEAN PLATELET VOLUME 7.1 fl (7.4-10.4); MONOCYTES % 6.8 % (2.0-8.0); NEUTROPHILS % 61.6 % (40.0-76.0); PLATELET 376 x1000/uL (130-400); RED BLOOD CELL COUNT 3.81 mill/uL (4.2-5.4); RED CELL DISTRIBUTION WIDTH 13.8 % (11.6-14.6)
[2019-10-14 11:35] LABS: PROTHROMBIN TIME 11.1 sec (9.6-11.0)
[2019-10-14] MEDS ORDERED: LACTATED RINGERS 1,000 ML IV STA (12:31)
[2019-10-14 12:35] VITALS: BP 144/95
== END 2019-10-14 13:13 | disposition home or self-care (01) ==
LOC: ER 10:07
DX: G89.29 Other chronic pain (principal); M54.9 Dorsalgia, unspecified; R11.0 Nausea; R10.9 Unspecified abdominal pain; F12.10 Cannabis abuse, uncomplicated; Z79.899 Other long term (current) drug therapy
CPT/HCPCS: 36415; 80053; 81003; 81025; 83690; 85025; 85610; 96372; 96374; 99284; J1630; J1885; J7030; J7120